=== PATIENT | female | born 1980 | race Two or more races ===

== ENCOUNTER 2021-06-28 08:25 | Emergency (ER) | payer MEDICAID ==
[~2021-06-28] VITALS: Ht 162.6 cm; Wt 63.6 kg
[2021-06-28 08:27] VITALS: BP 111/60
[2021-06-28] MEDS ORDERED: PRED50TA PO (08:59)
--- NOTE | 2021-06-28 09:16 | PHYS DOC ---
Past Medical History Past Surgical History: No Surgical History General Adult EDM: Chief Complaint: BACK PAIN OR INJURY HPI: HPI: Patient is a 40 year old female who presents with 3 weeks of right low back pain. Patient has had intermittent back pain since she had an accident where she fell down the stairs approximately 1 year ago. She does not recall any specific injury 3 weeks ago. Pain does not radiate. No radicular/sciatic pain. No weakness or numbness in the legs. No bowel/bladder incontinence or retention. No saddle anesthesia. No fevers or chills. No history of IVDU. No history of back surgery. No immunosuppressive conditions or medications. Has been taking Tylenol and ibuprofen for the past 3 weeks. She is unsure what dose. She has an appointment scheduled with her primary care doctor on 07/05, but felt like she could not wait any longer to be seen. Review of Systems: Review of Systems: Constitutional: Denies fever or chills. [] HENT: Denies nasal congestion or sore throat. [] Respiratory: Denies cough or shortness of breath. [] Cardiovascular: Denies chest pain or edema. [] GI: Denies abdominal pain, nausea, vomiting, bloody stools or diarrhea. [] : Denies dysuria. [] Musculoskeletal: Reports low back pain. Denies joint pain. [] Integument: Denies rash. [] Neurologic: Denies headache, focal weakness or sensory changes. [] Psychiatric: Denies depression or anxiety. [] Heart Score: C/O Chest Pain: No Allergies: Allergies: Allergies Coded Allergies Type Severity Reaction Last Updated Verified No Known Drug Allergies 06/28/21 No Physical Exam: PE: Constitutional: Well developed, well nourished, no acute distress, non-toxic appearance. [] Neck: Normal range of motion, no tenderness, supple, no stridor. [] Cardiovascular:Heart rate regular rhythm, no murmur [] Lungs & Thorax: Bilateral breath sounds clear to auscultation [] Abdomen: Soft, non-tender Skin: Warm, dry, no skin changes overlying the area of pain. Back: No tenderness, no CVA tenderness. [] Extremities: No tenderness, no cyanosis, no clubbing, ROM intact, no edema. [] Neurologic: Alert and oriented X 3, normal motor function, normal sensory function, no focal deficits noted. [] Specifically 5/5 strength in bilateral: -Hip flexion -Knee flexion/extension -Ankle plantar/dorsiflexion -Dorsiflexion of great toes Psychologic: Affect normal, judgement normal, mood normal. [] Current Patient Data: Vital Signs: Vital Signs Date Time Temp Pulse Resp B/P (MAP) Pulse Ox O2 Delivery O2 Flow Rate FiO2 06/28/21 08:27 98.3 90 14 111/60 (77) 97 Room Air 98.3 EKG: EKG: [] Radiology/Procedures: Radiology/Procedures: [] Course & Med Decision Making: Course & Med Decision Making Pertinent Labs and Imaging studies reviewed. (See chart for details) Patient 40-year-old female presents with 3 weeks of atraumatic nonradicular right lower back pain. No back pain red flags as outlined in HPI. Neuro exam is intact. With no trauma do not feel that x-ray or CT would be helpful. Given review history and exam, I have a low suspicion for spinal emergency such as a cauda equina, significant nerve compression, or infectious process such as spinal epidural abscess, discitis, vertebral osteomyelitis. Therefore I do not feel that she requires an urgent/emergent MRI. Pain has been refractory to Tylenol and ibuprofen. Will trial 5-day course of prednisone. Alma Rosa Disclaimer: Alma Rosa Disclaimer: This electronic medical record was generated, in whole or in part, using a voice recognition dictation system. Departure Departure Impression: Primary Impression: Pain in right lumbar region of back Disposition: 01 HOME / SELF CARE / HOMELESS Condition: STABLE Patient Instructions: Low Back Strain with Rehab-[facility] Additional Instructions: Please take Tylenol 1000 mg every 6 hours. Please take prednisone 50 mg every day for 5 days. Please do not take ibuprofen while you are taking prednisone. Please continue to follow-up with your outpatient doctors. If you develop weakness in your legs, inability to go to the bathroom, bladder or bowel incontinence, numbness between your legs, or high fever/chills please return to the emergency department for reevaluation. Scripts Prednisone (PREDNISONE) 50 Mg Tablet 1 TAB PO DAILY for 5 Days, #5 TAB 0 Refills Prov: GGAE VILLATORO MD 06/28/21 GAGE VILLATORO MD Jun 28, 2021 09:16
== END 2021-06-28 09:20 | disposition home or self-care (01) ==
LOC: ER 08:25
DX: M54.50 Low back pain, unspecified (principal); G89.11 Acute pain due to trauma; W10.8XXA Fall (on) (from) other stairs and steps, initial encounter; Y93.89 Activity, other specified; Y92.89 Other specified places as the place of occurrence of the external cause; Y99.8 Other external cause status
CPT/HCPCS: 81025; 99283